=== PATIENT | male | born 1955 | race Caucasian/White ===

== ENCOUNTER → 2019-06-03 | Outpatient (CLI) | payer OTHER ==
[~2019-06-03] MED LIST: AMOXICILLIN875 MG PO; ASPIR 8181 M1 PO; ASPIRIN325 PO; ATORVASTATIN CA40 MG PO; B-COMPLEX WITH1 EACH PO; CEFDINIR300 MG PO; COQ-10100 MG PO; ELIQUIS2.5 MG PO; FISH OIL 1,001000 M2 PO; FLECAINIDE ACET50 M1 PO; FLOMAX0.4 MG PO; GARLIC OIL1 EACH PO; HYDROCODON-ACE1 EAC7 PO; LEVAQUIN 500 M500 M3 PO; LISINOPRIL5 MG PO; MIRALAX17 GM PO; NEURONTIN 400400 M1 PO; OMEPRAZOLE40 MG PO; OXYCODONE HCL5 M1 PO; TOPROL XL25 MG PO; TUMS PO; UNICOMPLEX M TA1 TA1 PO; VYTORIN; XANAX 0.25 MG0.25 MG PO; XANAX 0.5 MG0.5 MG PO
== END ==
LOC: M.CT 07:37
DX: R91.1 Solitary pulmonary nodule (principal); J43.9 Emphysema, unspecified; J84.10 Pulmonary fibrosis, unspecified

== ENCOUNTER → 2019-07-14 | Outpatient (CLI) | payer OTHER | LOC: M.ULTRA 07:27 | DX: K76.0 Fatty (change of) liver, not elsewhere classified (principal) ==

== ENCOUNTER → 2021-07-27 | Outpatient (CLI) | payer MEDICARE, OTHER ==
[2021-07-27 08:39] LABS: CREATININE 0.7 mg/dL (0.6-1.3)
== END ==
LOC: M.LAB 08:00 → M.CT 08:00 → M.LAB 08:01 → M.CT 09:00
PROVIDERS: ATTEND Nurse Practitioner Adult Health
DX: K57.30 Diverticulosis of large intestine without perforation or abscess without bleeding (principal); J43.8 Other emphysema; K76.0 Fatty (change of) liver, not elsewhere classified; I70.8 Atherosclerosis of other arteries; M47.815 Spondylosis without myelopathy or radiculopathy, thoracolumbar region; M47.816 Spondylosis without myelopathy or radiculopathy, lumbar region; M43.17 Spondylolisthesis, lumbosacral region; R19.4 Change in bowel habit; Z86.010 Personal history of colon polyps